=== PATIENT | male | born 1950 | race Caucasian/White ===

== ENCOUNTER 2021-03-18 00:09 | Emergency (ER) | payer MEDICARE ==
[2021-03-18 00:17] VITALS: BP 186/95; PULSE 62; RESP 20; TEMP 97.9
[2021-03-18] MEDS ORDERED: SODIUM CHLORIDE 0.9% 1,000 ML IV STA (00:19)
[2021-03-18] MEDS ORDERED: ONDANSETRON 4 MG/2 ML VIAL IVP STA (00:19)
[2021-03-18 01:12] LABS: Basophils % (A) 0 %; Eosinophils # (A) 0.3 k/uL (0-0.7); Eosinophils % (A) 3 %; HCT 47.5 % (39.0-53.0); HGB 15.9 gm/dL (13.0-17.5); Lymphocytes # (A) 1.9 k/uL (1.0-4.8); Lymphocytes % (A) 19 %; MCHC 33.5 g/dL (31.0-37.0); MCV 92.3 fL (80.0-100.0); Mean Platelet Volume 7.4; Monocytes # (A) 0.5 k/uL (0-1.0); Monocytes % (A) 5 %; Neutrophils # (A) 7.2 k/uL (1.3-7.7); Neutrophils % (A) 72 %; Platelet Count 184 k/uL (150-450); RBC 5.14 m/uL (4.30-5.90); RDW 13.9 % (11.5-15.5); WBC 10.1 k/uL (3.8-10.6)
--- NOTE | 2021-03-18 01:37 | ED ---
Abdominal Pain HPI - General Chief Complaint: Abdominal Pain Stated Complaint: Abd Pain Time Seen by Provider: 03/18/21 00:19 Source: patient, RN notes reviewed Mode of arrival: ambulatory Limitations: no limitations - History of Present Illness Initial Comments: Patient is a 71-year-old male that presents to the emergency department complaining of right upper quadrant and upper abdominal pain after eating increase each cheeseburger and chilly. He notes that shortly after eating this food he started having abdominal cramps and upper abdominal pain. He notes that he went to the bathroom several times. He notes that he did feel nauseous but never vomited. Patient notes that since then the pain has subsided moderately. He still notes that he is having cramping and nausea. She notes he still has his gallbladder. He denied any chest pain shortness of breath headache constipation fever fatigue chills. - Related Data Allergies Allergy/AdvReac Type Severity Reaction Status Date / Time No Known Allergies Allergy Verified 03/18/21 00:11 Review of Systems ROS Statement: Those systems with pertinent positive or pertinent negative responses have been documented in the HPI. ROS Other: All systems not noted in ROS Statement are negative. Past Medical History Past Medical History: Hyperlipidemia, Hypertension History of Any Multi-Drug Resistant Organisms: None Reported Past Surgical History: No Surgical Hx Reported Additional Past Surgical History / Comment(s): carpel tunnel Past Psychological History: Anxiety Smoking Status: Never smoker Past Alcohol Use History: Rare Past Drug Use History: None Reported General Exam Limitations: no limitations General appearance: alert, in no apparent distress, obese (Morbidly) Head exam: Present: atraumatic, normocephalic, normal inspection Eye exam: Present: normal appearance, PERRL, EOMI. Absent: scleral icterus, conjunctival injection, periorbital swelling ENT exam: Present: normal exam, mucous membranes moist Neck exam: Present: normal inspection Respiratory exam: Present: normal lung sounds bilaterally. Absent: respiratory distress, wheezes, rales, rhonchi, stridor Cardiovascular Exam: Present: regular rate, normal rhythm, normal heart sounds. Absent: systolic murmur, diastolic murmur, rubs, gallop, clicks GI/Abdominal exam: Present: soft, tenderness (Her upper quadrant and epigastric region), normal bowel sounds. Absent: distended, guarding, rebound, rigid Extremities exam: Present: normal inspection, full ROM, normal capillary refill. Absent: tenderness, pedal edema, joint swelling, calf tenderness Neurological exam: Present: alert, oriented X3 Psychiatric exam: Present: normal affect, normal mood Skin exam: Present: warm, dry, intact, normal color. Absent: rash Course Vital Signs 03/18/21 00:11 Temperature 97.9 F Pulse Rate 62 Respiratory 20 Rate Blood Pressure 186/95 O2 Sat by Pulse 96 Oximetry Medical Decision Making - Medical Decision Making 71-year-old male complaining of right upper quadrant and epigastric abdominal pain after eating a greasy cheeseburger and chilly. Labs, 4 mg of Zofran, ultrasound of the gallbladder ordered. Labs CBC unremarkable, CMP shows an elevated amylase of 250 an elevated lipase of 2997. Patient was informed that we CT acute problems patient rated discharge home. Patient adamantly states that he wants to go home. He was informed to have bowel rest tomorrow by not eating any food and just drinking water. He will be sent with a, 3 starter pack and a Zofran starter pack. Ultrasound shows several gallstones but no obstruction. Case discussed with Dr. Delacruz, patient can discharge home. - Lab Data Result diagrams: 03/18/21 01:01 03/18/21 01:25 Lab Results 03/18/21 03/18/21 Range/Units 01:01 01:25 WBC 10.1 (3.8-10.6) k/uL RBC 5.14 (4.30-5.90) m/uL Hgb 15.9 (13.0-17.5) gm/dL Hct 47.5 (39.0-53.0) % MCV 92.3 (80.0-100.0) fL MCH 31.0 (25.0-35.0) pg MCHC 33.5 (31.0-37.0) g/dL RDW 13.9 (11.5-15.5) % Plt Count 184 (150-450) k/uL MPV 7.4 Neutrophils % 72 % Lymphocytes % 19 % Monocytes % 5 % Eosinophils % 3 % Basophils % 0 % Neutrophils # 7.2 (1.3-7.7) k/uL Lymphocytes # 1.9 (1.0-4.8) k/uL Monocytes # 0.5 (0-1.0) k/uL Eosinophils # 0.3 (0-0.7) k/uL Basophils # 0.0 (0-0.2) k/uL Sodium 138 (137-145) mmol/L Potassium 3.9 (3.5-5.1) mmol/L Chloride 104 (98-107) mmol/L Carbon Dioxide 24 (22-30) mmol/L Anion Gap 10 mmol/L BUN 24 H (9-20) mg/dL Creatinine 0.78 (0.66-1.25) mg/dL Est GFR (CKD-EPI)AfAm >90 (>60 ml/min/1.73 sqM) Est GFR (CKD-EPI)NonAf 90 (>60 ml/min/1.73 sqM) Glucose 131 H (74-99) mg/dL Calcium 9.6 (8.4-10.2) mg/dL Total Bilirubin 0.4 (0.2-1.3) mg/dL AST 35 (17-59) U/L ALT 35 (4-49) U/L Alkaline Phosphatase 76 (38-126) U/L Total Protein 7.0 (6.3-8.2) g/dL Albumin 4.0 (3.5-5.0) g/dL Amylase 250 H (30-110) U/L Lipase 2997 H (23-300) U/L - Radiology Data Radiology results: report reviewed, image reviewed Ultrasound of the gallbladder: There is gallstones or gallbladder polyp at the gallbladder fundus. No dilated ducts. No discrete liver mass. There is pro bably fatty infiltration of the liver. Disposition Clinical Impression: Pancreatitis Disposition: HOME SELF-CARE Condition: Stable Instructions (If sedation given, give patient instructions): Pancreatitis (ED) Additional Instructions: Please return to the Emergency Department if symptoms worsen or any other concerns. Follow-up with primary care 1-2 days. Bowel rest for the next 24-48 hours, only drink water no coffee Tea Pop or alcohol. Try to avoid any food for at least 24 hours. Take Tylenol and Zofran as prescribed. Is patient prescribed a controlled substance at d/c from ED?: No Referrals: Mallika Brunner [Primary Care Provider] - 1-2 days Time of Disposition: 02:04
--- NOTE | 2021-03-18 01:40 | US ---
EXAMINATION TYPE: US gallbladder DATE OF EXAM: 03/18/2021 COMPARISON: NONE CLINICAL HISTORY: RUQ pain. Abdominal cramping after eating per patient. EXAM MEASUREMENTS: Liver Length: 18.2 cm Gallbladder Wall: 0.2 cm CBD: 0.4 cm Right Kidney: 11.6 x 5.8 x 7.0 cm Limited due to patient body habitus Pancreas: Obscured by bowel gas Liver: Increased attenuation, decreased visualization of vessels suggestive of fatty infiltrate. En larged in size. Coarse. Gallbladder: possible echogenic lesion adjacent to fundal wall - 0.3 x 0.4 cm, only seen LLD Evidence for sonographic Bowie's sign: neg CBD: wnl Right Kidney: No hydronephrosis or masses seen IMPRESSION: There is gallstone or gallbladder polyp at the gallbladder fundus. No dilated ducts. No discrete live r mass. There is probably fatty infiltration of the liver.
[2021-03-18 01:47] LABS: ALT 35 U/L (4-49); AST 35 U/L (17-59); African American GFR (CKD) >90 (>60 ml/min/1.73 sqM); Alkaline Phosphatase 76 U/L (38-126); Amylase 250 U/L (30-110); Anion Gap 10 mmol/L; Blood Urea Nitrogen 24 mg/dL (9-20); Calcium 9.6 mg/dL (8.4-10.2); Carbon Dioxide 24 mmol/L (22-30); Chloride 104 mmol/L (98-107); Glucose 131 mg/dL (74-99); Non-African American GFR(CKD) 90 (>60 ml/min/1.73 sqM); Potassium 3.9 mmol/L (3.5-5.1); Sodium 138 mmol/L (137-145); Total Bilirubin 0.4 mg/dL (0.2-1.3)
[2021-03-18 01:56] LABS: Lipase 2997 U/L (23-300)
[2021-03-18] MEDS ORDERED: ACET/COD 300 MG/30 MG STARTER PACK 6 TAB BTL PO STA (02:03)
[2021-03-18] MEDS ORDERED: ONDANSETRON 4 MG ODT STARTER PACK 2 TAB BTL PO STA (02:03)
== END 2021-03-18 03:07 | disposition home or self-care (01) ==
LOC: EC 00:09
DX: K85.90 Acute pancreatitis without necrosis or infection, unspecified (principal); I10 Essential (primary) hypertension; E78.5 Hyperlipidemia, unspecified; F41.9 Anxiety disorder, unspecified
CPT/HCPCS: 99284; 96374; 36415; 80053; 82150; 83690; 85025; 76705; J2405; S0119

== ENCOUNTER 2023-01-11 12:02 | Observation (INO) | payer MEDICARE ==
--- NOTE | 2023-01-11 12:30 | ED ---
General Adult HPI - General Chief complaint: Shortness of Breath Stated complaint: Cellulitis in both legs Time Seen by Provider: 01/11/23 12:12 Source: patient Mode of arrival: wheelchair Limitations: no limitations - History of Present Illness Initial comments: Dictation was produced using [employer] dictation software. please excuse any grammatical, word or spelling errors. Chief Complaint: 72-year-old male presents emergency Department with acute on chronic lower extremity pain bilaterally History of Present Illness:. 72-year-old male who has past medical history dyslipidemia hypertension and osteoarthritis. Presents emergency department with worsening lower extremity pain. He's been expressing this pain for years. He has been seen by his primary care doctor for this and was instructed to go and see a technical documentation specialist. He did in fact see the technical documentation specialist months ago and symptoms improved however he has not followed up. Patient states over the last several weeks his symptoms have been getting worse. Denies any constitutional symptoms. States that the pain is so bad that he is unable to care for himself at home. He lives at home by himself with his dog. He has no one to help care for him. He denies any shortness of breath. Denies any constitutional symptoms. He has not been taking any analgesic medications for symptoms. The ROS documented in this emergency department record has been reviewed and confirmed by me. Those systems with pertinent positive or negative responses have been documented in the HPI. All other systems are other negative and/or noncontributory. - Related Data Allergies Allergy/AdvReac Type Severity Reaction Status Date / Time No Known Allergies Allergy Verified 03/18/21 00:11 Review of Systems ROS Statement: Those systems with pertinent positive or pertinent negative responses have been documented in the HPI. ROS Other: All systems not noted in ROS Statement are negative. Past Medical History Past Medical History: Hyperlipidemia, Hypertension, Osteoarthritis (OA) History of Any Multi-Drug Resistant Organisms: None Reported Past Surgical History: No Surgical Hx Reported Additional Past Surgical History / Comment(s): carpel tunnel Past Psychological History: Anxiety Smoking Status: Never smoker Past Alcohol Use History: Rare Past Drug Use History: None Reported General Exam - General Exam Comments Initial Comments: PHYSICAL EXAM: General Impression: Alert and oriented x3, not in acute distress HEENT: Normocephalic atraumatic, extra-ocular movements intact, pupils equal and reactive to light bilaterally, mucous membranes moist. Cardiovascular: Heart regular rate and rhythm Chest: Able to complete full sentences, no retractions, no tachypnea, lungs clear to auscultation bilaterally Abdomen: abdomen soft, non-tender, non-distended, no organomegaly Musculoskeletal: Pulses present and equal in all extremities, no peripheral ed gavin Motor: no focal deficits noted Neurological: CN II-XII grossly intact, no focal motor or sensory deficits noted Skin: Intact with no visualized rashes Lower extremity bilaterally: There is nonpitting edema to the bilateral lower extremities, affected skin is circumferential. It is tender to palpation. It is erythematous however not warm to the touch. Erythematous nonblanching Psych: Normal affect and mood Limitations: no limitations Course Vital Signs 01/11/23 12:08 Temperature 98 F Pulse Rate 99 Respiratory 16 Rate Blood Pressure 196/87 O2 Sat by Pulse 93 L Oximetry EKG Findings - EKG Comments: EKG Findings:: My EKG interpretation: Ventricular rate 96, sinus rhythm,. Interval 186, QRS 110, QTc 419. No WI prolongation, no QTC prolongation, no ST or T-wave changes noted. Overall, this EKG is unremarkable Medical Decision Making - Medical Decision Making Was pt. sent in by a medical professional or institution (, PA, DIE CUTTING MACHINE OPERATOR, urgent care, hospital, or alf...) When possible be specific @ -No Did you speak to anyone other than the patient for history (EMS, parent, family, police, friend...)? What history was obtained from this source @ -No Did you review nursing and triage notes (agree or disagree)? Why? @ -I reviewed and agree with nursing and triage notes Were old charts reviewed (outside hosp., previous admission, EMS record, old EKG, old radiological studies, urgent care reports/EKG's, alf records)? Report findings @ -No old charts were reviewed Differential Diagnosis (chest pain, altered mental status, abdominal pain women, abdominal pain men, vaginal bleeding, musculoskeletal, weakness, fever, dyspnea, syncope, headache, dizziness, GI bleed, back pain, seizure, CVA, palpatations, mental health)? @ -Cellulitis, lymphedema, heart failure EKG interpreted by me (3pts min.). @ -None done X-rays interpreted by me (1pt min.). @ -2 view chest x-ray shows pulmonary vascular congestion and mild cardiomegaly CT interpreted by me (1pt min.). @ -None done U/S interpreted by me (1pt. min.). @ -None done What testing was considered but not performed or refused? (CT, X-rays, U/S, labs)? Why? @ -None What meds were considered but not given or refused? Why? @ -None Did you discuss the management of the patient with other professionals (professionals i.e. DrKassidy, PA, DIE CUTTING MACHINE OPERATOR, lab, RT, psych nurse, social worker health services, patient care specialist, teacher, airplane first officer, outsole caser)? Give summary @ -Case discussed with Dr. Clayton for admission Was smoking cessation discussed for >3mins.? @ -No Was critical care preformed (if so, how long)? @ -No Were there social determinants of health that impacted care today? How? (Homelessness, low income, unemployed, alcoholism, drug addiction, transportation, low edu. Level, literacy, decrease access to med. care, [place] [facility], rehab)? @ -No Was there de-escalation of care discussed even if they declined (Discuss DNR or withdrawal of care, Hospice)? DNR status @ -No What co-morbidities impacted this encounter? (DM, HTN, Smoking, COPD, CAD, Cancer, CVA, ARF, Chemo, Hep., AIDS, mental health diagnosis, sleep apnea, morbid obesity)? @ -None Was patient admitted / discharged? Hospital course, mention meds given and route, prescriptions, significant lab abnormalities, going to OR and other pertinent info. @ -72 Year-old male be admitted for observation admission for worsening leg pain. He has a pulse social situation. Patient lives at home by himself without any homecare assistance. States that he does not feel safe going home. Laboratory evaluation obtained. No leukocytosis. CBC and metabolic panel within acceptable limits. Very slight elevation in CRP. Patient's pain likely secondary to lymphedema. Patient requesting admission. Patient be admitted. This point no compelling objective findings to suggest cellulitis. Antibiotics withheld at this time. Undiagnosed new problem with uncertain prognosis? @ -No Drug Therapy requiring intensive monitoring for toxicity (Heparin, Nitro, Insulin, Cardizem)? @ -No Were any procedures done? @ -No Diagnosis/symptom? Acute, or Chronic, or Acute on Chronic? Uncomplicated (without systemic symptoms) or Complicated (systemic symptoms)? @ -Lower extremity pain, gravely disabled Side effects of treatment? @ -No Exacerbation, Progression, or Severe Exacerbation? @ -No Poses a threat to life or bodily function? How? (Chest pain, [place], [place], pneumonia, PE, COPD, DKA, ARF, appy, cholecystitis, CVA, Diverticulitis, Homicidal, [place] cidal, threat to staff... and all critical care pts) @ -yes - Lab Data Result diagrams: 01/11/23 12:42 01/11/23 12:42 Lab Results 01/11/23 01/11/23 01/11/23 Range/Units 12:42 12:42 12:42 WBC 7.7 (3.8-10.6) k/uL RBC 5.04 (4.30-5.90) m/uL Hgb 14.9 (13.0-17.5) gm/dL Hct 44.6 (39.0-53.0) % MCV 88.5 (80.0-100.0) fL MCH 29.6 (25.0-35.0) pg MCHC 33.4 (31.0-37.0) g/dL RDW 13.5 (11.5-15.5) % Plt Count 226 (150-450) k/uL MPV 6.7 Neutrophils % 68 % Lymphocytes % 20 % Monocytes % 7 % Eosinophils % 3 % Basophils % 0 % Neutrophils # 5.2 (1.3-7.7) k/uL Lymphocytes # 1.5 (1.0-4.8) k/uL Monocytes # 0.5 (0-1.0) k/uL Eosinophils # 0.2 (0-0.7) k/uL Basophils # 0.0 (0-0.2) k/uL Sodium 139 (137-145) mmol/L Potassium 4.1 (3.5-5.1) mmol/L Chloride 104 (98-107) mmol/L Carbon Dioxide 25 (22-30) mmol/L Anion Gap 10 mmol/L BUN 17 (9-20) mg/dL Creatinine 0.78 (0.66-1.25) mg/dL Est GFR (CKD-EPI)AfAm >90 (>60 ml/min/1.73 sqM) Est GFR (CKD-EPI)NonAf 89 (>60 ml/min/1.73 sqM) Glucose 96 (74-99) mg/dL Plasma Lactic Acid Hollis 1.2 (0.7-2.0) mmol/L Calcium 9.3 (8.4-10.2) mg/dL Total Bilirubin 0.7 (0.2-1.3) mg/dL AST 34 (17-59) U/L ALT 22 (4-49) U/L Alkaline Phosphatase 84 (38-126) U/L C-Reactive Protein 4.9 H (<1.0) mg/dL NT-Pro-B Natriuret Pep 438 pg/mL Total Protein 7.7 (6.3-8.2) g/dL Albumin 3.7 (3.5-5.0) g/dL Disposition Clinical Impression: Leg pain Disposition: ADMITTED IP TO THIS [facility] Condition: Fair Referrals: None,Stated [Primary Care Provider] - 1-2 days Decision Time: 15:23
[2023-01-11 12:54] LABS: Basophils % (A) 0 %; Eosinophils # (A) 0.2 k/uL (0-0.7); Eosinophils % (A) 3 %; HCT 44.6 % (39.0-53.0); HGB 14.9 gm/dL (13.0-17.5); Lymphocytes # (A) 1.5 k/uL (1.0-4.8); Lymphocytes % (A) 20 %; MCH 29.6 pg (25.0-35.0); MCHC 33.4 g/dL (31.0-37.0); MCV 88.5 fL (80.0-100.0); Mean Platelet Volume 6.7; Monocytes # (A) 0.5 k/uL (0-1.0); Monocytes % (A) 7 %; Neutrophils # (A) 5.2 k/uL (1.3-7.7); Neutrophils % (A) 68 %; Platelet Count 226 k/uL (150-450); RBC 5.04 m/uL (4.30-5.90); RDW 13.5 % (11.5-15.5); WBC 7.7 k/uL (3.8-10.6)
[2023-01-11 13:12] LABS: ALT 22 U/L (4-49); AST 34 U/L (17-59); African American GFR (CKD) >90 (>60 ml/min/1.73 sqM); Albumin 3.7 g/dL (3.5-5.0); Alkaline Phosphatase 84 U/L (38-126); Anion Gap 10 mmol/L; Blood Urea Nitrogen 17 mg/dL (9-20); Calcium 9.3 mg/dL (8.4-10.2); Carbon Dioxide 25 mmol/L (22-30); Chloride 104 mmol/L (98-107); Glucose 96 mg/dL (74-99); Non-African American GFR(CKD) 89 (>60 ml/min/1.73 sqM); Potassium 4.1 mmol/L (3.5-5.1); Sodium 139 mmol/L (137-145); Total Bilirubin 0.7 mg/dL (0.2-1.3); Total Protein 7.7 g/dL (6.3-8.2)
[2023-01-11 13:21] LABS: NT-Pro-B-Type Natriuretic Pept 438 pg/mL
[2023-01-11 13:42] LABS: C Reactive Protein 4.9 mg/dL (<1.0)
--- NOTE | 2023-01-11 14:21 | XR ---
EXAMINATION TYPE: XR chest 2V DATE OF EXAM: 01/11/2023 COMPARISON: NONE HISTORY: Dyspnea TECHNIQUE: Frontal and lateral views of the chest are obtained. FINDINGS: There is mild pulmonary vascular congestion but no interstitial airspace edema. The heart is moderate ly enlarged. There is no pleural effusion or pneumothorax. The osseous structures are intact. IMPRESSION: Findings most consistent with mild CHF. Clinical correlation recommended.
[2023-01-11] MEDS ORDERED: ONDANSETRON 4 MG/2 ML VIAL IVP PRN (15:17)
[2023-01-11] MEDS ORDERED: NALOXONE 0.4 MG/ML 1 ML VIAL IV PRN (15:17)
[2023-01-11] MEDS ORDERED: MORPHINE SULFATE 4 MG/ML SYRINGE IV PRN (15:17)
[2023-01-11] MEDS ORDERED: HYDROcodone/APAP 5-325MG 1 EACH TAB PO PRN (15:17)
[2023-01-11] MEDS ORDERED: ACETAMINOPHEN TAB 325 MG TAB PO PRN (18:16)
[2023-01-11] MEDS ORDERED: IBUPROFEN 400 MG TAB PO PRN (18:16)
--- NOTE | 2023-01-11 18:18 | P.HPIM ---
History of Present Illness H&P Date: 01/11/23 Chief Complaint: LE pain 72 year old man who does not follow with a physician in the last year since losing insurance, HTN, HLD, Lymphedema presented for evaluation of LE pain. Pt says that pain has been chronic over the last year, but has been very bad in the last few days. He has only tried over the counter medication for this including tylenol/motrin, gauze wrap etc. However, he has not found significant relief. He has not taken any prescription meds in the last year. He used to be on medications for BP, cholesterol. He denies fevers. Reports chills. Denies n/v/c/d, abd pain, cough, dyspnea, dysuria, dyschezia, numbness/weakness of extremities. In the ER, patient was afebrile, 196/87, HR 99, 97% on RA. CBC, BMP, LFTs unremarkable. CRP 4.9. BNP 438. EKG shows NSR wth normal axis, no evidence of ischemia. CXR shows cardiomegaly, mild vascular congestion. Case discussed with ER provider and patient admitted to observation for LE pain. All Systems reviewed and pertinent positives and negatives noted in HPI, all other symptoms are negative Gen: in no apparent distress, resting comfortably in bed Eyes: PERRL, no scleral injection or icterus HENT: normocephalic, atraumatic, good hearing acuity, moist mucous membranes Neck: no tracheal deviation, full range of motion Resp: good air exchange, breathing comfortably with no accessory muscle use, no tactile fremitus, clear to auscultation bilaterally CVS: good distal perfusion x 4, bilateral pitting edema superimposed on lymphedema with chronic venous stasis changes, regular rate and rhythm GI: soft, NTTP, ND, no hepatosplenomegaly : no suprapubic tenderness, no CVAT, platt catheter not present MSK: no clubbing, no cyanosis, no noted contractures of extremities Skin: no noted rashes, petechiae; temperature of skin is appropriate Neuro: moving all extremities without signs of weakness, CN II-XII intact Psych: cooperative, euthymic mood, insight and judgment intact Labs and images as above Assessment: Bilateral lower extremity pain Lymphedema - wound care consult - outpatient wound care referral - tylenol PRN - gabapentin 100mg TID - motrin PRN Hypertensive urgency - amlodipine, lisinopril initiated today - hydralazine PRN for SBP > 180 Hyperlipidemia - start atorvastatin - lipid panel Obesity, class III - A1c - weight loss referral, diet and exercise lifestyle modification education on discharge Patient is full code Past Medical History Past Medical History: Hyperlipidemia, Hypertension, Osteoarthritis (OA) History of Any Multi-Drug Resistant Organisms: None Reported Past Surgical History: No Surgical Hx Reported Additional Past Surgical History / Comment(s): carpel tunnel Past Psychological History: Anxiety Smoking Status: Never smoker Past Alcohol Use History: Rare Past Drug Use History: None Reported Medications and Allergies Home Medications Medication Instructions Recorded Confirmed Type diphenhydrAMINE [Benadryl] 50 mg PO BID 01/11/23 01/11/23 History Allergies Allergy/AdvReac Type Severity Reaction Status Date / Time No Known Allergies Allergy Verified 01/11/23 15:57 Physical Exam Osteopathic Statement: *. No significant issues noted on an osteopathic structural exam other than those noted in the History and Physical/Consult. Vitals: Vital Signs Temp Pulse Pulse Resp BP BP BP 01/11/23 18:02 98.0 F 97 20 184/104 185/108 01/11/23 16:56 98.7 F 79 20 180/76 01/11/23 12:08 98 F 99 16 196/87 Pulse Ox 01/11/23 18:02 95 01/11/23 16:56 97 01/11/23 12:08 93 L Intake and Output 01/11/23 01/11/23 01/11/23 06:59 14:59 22:59 Other: Weight 158.757 kg Results CBC & Chem 7: 01/11/23 12:42 01/11/23 12:42 Labs: Abnormal Lab Results - Last 24 Hours (Table) 01/11/23 Range/Units 12:42 C-Reactive Protein 4.9 H (<1.0) mg/dL
[2023-01-11] MEDS: GABAPENTIN 100 MG CAP PO SCH ×2 (18:41→20:53)
[2023-01-11] MEDS: HEPARIN SODIUM,PORCINE 5,000 UNIT/ML 1 ML VIAL SQ SCH ×2 (18:42→23:51)
[2023-01-11] MEDS: lisinopriL 10 MG TAB PO SCH (18:43)
[2023-01-11] MEDS: amLODIPine 10 MG TAB PO SCH (18:43)
[2023-01-11] MEDS: SODIUM CHLORIDE 0.9% 1,000 ML IV SCH (20:53)
[2023-01-11] MEDS: ATORVASTATIN 40 MG TAB PO SCH (20:53)
[2023-01-11 23:35] LABS: Erythrocyte Sedimentation Rate 96 mm/Hr (0-20)
[2023-01-12 02:39] VITALS: RESP 18
[2023-01-12] MEDS: HEPARIN SODIUM,PORCINE 5,000 UNIT/ML 1 ML VIAL SQ SCH ×3 (08:11→23:46)
[2023-01-12] MEDS: GABAPENTIN 100 MG CAP PO SCH ×3 (08:11→20:00)
[2023-01-12] MEDS: amLODIPine 10 MG TAB PO SCH (08:11)
[2023-01-12] MEDS: lisinopriL 10 MG TAB PO SCH (08:11)
[2023-01-12 11:09] LABS: Blood Urea Nitrogen 14.6 mg/dL (9.0-27.0); Carbon Dioxide 28.2 mmol/L (21.6-31.8); Chloride 102 mmol/L (96-109); Chol/HDL Ratio 2.56 Ratio; Glucose 129 mg/dL (70-110); LDL Cholesterol,Calculated 75.8 mg/dL (0.0-131.0); Potassium 4.5 mmol/L (3.5-5.5); Sodium 140 mmol/L (135-145); VLDL Calculation 19.28 mg/dL (5.00-40.00)
[2023-01-12 11:19] LABS: Basophils # (A) 0.02 X 10*3/uL (0.00-0.10); Basophils % (A) 0.3 %; Eosinophils # (A) 0.11 X 10*3/uL (0.04-0.35); Eosinophils % (A) 1.5 %; HCT 44.7 % (39.6-50.0); HGB 14.2 d/dL (13.0-17.0); Lymphocytes # (A) 1.41 X 10*3/uL (0.90-5.00); Lymphocytes % (A) 19.6 %; MCH 29.2 pg (27.0-32.0); MCHC 31.8 d/dL (32.0-37.0); MCV 91.8 FL (80.0-97.0); Mean Platelet Volume 9.6 FL (9.5-12.2); Monocytes # (A) 0.61 X 10*3/uL (0.20-1.00); Monocytes % (A) 8.5 %; NRBC Per 100 WBC 0 X 10*3/uL (0.00-0.01); Neutrophils # (A) 5.03 X 10*3/uL (1.80-7.70); Neutrophils % (A) 69.7 %; Platelet Count 224 X 10*3/uL (140-440); RBC 4.87 X 10*6/uL (4.40-5.60); WBC 7.21 X 10*3/uL (4.50-10.00)
--- NOTE | 2023-01-12 11:37 | P.PN ---
Subjective Progress Note Date: 01/12/23 Hospital course: Patient is a Physical exam: Vital signs reviewed and stable. General: Nontoxic, no distress and appears stated age. Derm: Skin warm and dry, normal coloration for ethnicity. Head: Atraumatic, normocephalic and symmetric. Eyes: EOMs intact, no lid lag, and anicteric sclera Mouth: no lip lesions, mucus membranes moist Cardiovascular: regular rate and rhythm with normal S1S2, no murmur, positive posterior tibial pulses bilaterally, and cap refill < 2 seconds. Lungs: Respirations even, regular, and unlabored on room air. Lungs CTA bilaterally, no rhonchi, no rales, no wheezing, and no accessory muscle usage. Abdominal: soft, nontender to palpation, no guarding, no appreciable organomegaly Ext: ROM intact. No gross muscle atrophy, no edema, no contractures Neuro: Speech clear, face symmetrical and CN II-XII grossly intact with no noted focal neuro deficits Psych: Alert and oriented to person, place, time, and situation. Appropriate and pleasant affect. Assessment and Plan of Care: CODE STATUS:[] DVT prophylaxis: [] Discussed with: [] Anticipated discharge date: [] Anticipated discharge place: [] Patient was seen independently by Nurse Pracitioner. This document was prepared using [employer] dictation software. Please allow for errors in supervisor phosphorus processing, while rare they do occur. Objective - Vital Signs Vital signs: Vital Signs Temp 98.1 F 01/12/23 07:25 Pulse 75 01/12/23 07:25 Resp 18 01/12/23 07:25 BP 117/73 01/12/23 07:25 Pulse Ox 94 L 01/12/23 07:25 FiO2 Intake & Output 01/11/23 01/12/23 01/12/23 18:59 06:59 18:59 Intake Total 240 Balance 240 Weight 158.757 kg 154.8 kg Intake: Oral 240 Other: Voiding Method Toilet # Voids 1 3 - Labs CBC & Chem 7: 01/12/23 06:46 01/12/23 06:46 Labs: Abnormal Lab Results - Last 24 Hours (Table) 01/11/23 01/11/23 Range/Units 12:42 12:42 ESR 96 H (0-20) mm/Hr C-Reactive Protein 4.9 H (<1.0) mg/dL
--- NOTE | 2023-01-12 13:22 | P.CONS ---
History of Present Illness - Reason for Consult Consult date: 01/12/23 wound care - History of Present Illness This is a 72-year-old patient with history of venous insufficiency, lymphedema, and chronic ulcerations to bilateral lower extremities. Patient was followed previously had a wound care center however he did not tolerate the dressings and was not compliant. Patient has multiple open weeping ulcerations Limited to skin breakdown to bilateral lower extremities 4+ pitting edema with erythema and irritation noted. Patient routinely sits with his legs dependent and does not feel comfortable elevating them. Patient sleeps in a chair at night. Patient's past medical history significant for chronic venous insufficiency, hyperlipidemia, hypertension, and obesity. he is a lifelong nonsmoker and denies diabetes. Review Of Systems: Constitutional: No fever, no chills, no night sweats. No weight change. No weakness, fatigue or lethargy. No daytime sleepiness. Integumentary:reports wounds, no lesions. No rash or pruritus. No unusual bruising. No change in hair or nails. Physical exam: General Appearance: Alert, cooperative, no distress, appears stated age. Skin: See HPI all other Skin color, texture, tugor normal, no rashes or lesions. Neurologic: Alert oriented x3 Assessment: 1. Nonhealing ulceration other part of left lower extremity Limited to skin breakdown 2. Nonhealing ulceration with other part of right lower extremity Limited to skin breakdown 3. Chronic venous hypertension with inflammation and ulceration bilateral lower extremities 4. Obesity Plan: 1.Apply absorptive silver to the open weeping areas, zinc barrier cream to the intact skin wrap with rolled gauze and Alphonse wrap for compression. Change Thursday. Discussed with patient the importance of elevation and not sleeping in a chair all night. Discussed with patient the importance of compression. Patient verbalized understanding Thank you for the consultation any questions please contact the wound care center DNP note has been reviewed and discussed with Dr. Malik and the impression and plan of care has been directed as dictated. Past Medical History Past Medical History: Hyperlipidemia, Hypertension, Osteoarthritis (OA) History of Any Multi-Drug Resistant Organisms: None Reported Past Surgical History: No Surgical Hx Reported Additional Past Surgical History / Comment(s): carpel tunnel Past Anesthesia/Blood Transfusion Reactions: No Reported Reaction Past Psychological History: Anxiety Smoking Status: Never smoker Past Alcohol Use History: Rare Past Drug Use History: None Reported - Past Family History Father Family Medical History: Congestive Heart Failure (CHF) Mother Family Medical History: Cancer Medications and Allergies Home Medications Medication Instructions Recorded Confirmed Type diphenhydrAMINE [Benadryl] 50 mg PO BID 01/11/23 01/11/23 History Allergies Allergy/AdvReac Type Severity Reaction Status Date / Time No Known Allergies Allergy Verified 01/11/23 15:57 Physical Exam Vitals: Vital Signs Temp Pulse Pulse Resp BP BP BP 01/12/23 12:12 97.7 F 74 18 134/76 01/12/23 07:25 98.1 F 75 18 117/73 01/12/23 02:00 98.4 F 79 18 141/75 01/11/23 20:51 98.0 F 91 20 178/98 01/11/23 18:02 98.0 F 97 20 184/104 185/108 01/11/23 16:56 98.7 F 79 20 180/76 Pulse Ox 01/12/23 12:12 95 01/12/23 07:25 94 L 01/12/23 02:00 93 L 01/11/23 20:51 95 01/11/23 18:02 95 01/11/23 16:56 97 Intake and Output 01/11/23 01/12/23 01/12/23 22:59 06:59 14:59 Intake Total 240 Balance 240 Intake: Oral 240 Other: Voiding Method Toilet # Voids 1 3 2 Weight 158.757 kg 154.8 kg Results CBC & Chem 7: 01/12/23 06:46 01/12/23 06:46 Labs: Abnormal Lab Results - Last 24 Hours (Table) 01/11/23 01/11/23 01/12/23 Range/Units 12:42 12:42 06:46 MCHC (32.0-37.0) d/dL ESR 96 H (0-20) mm/Hr Glucose (70-110) mg/dL Hemoglobin A1c 7.1 H (<=6.0) % C-Reactive Protein 4.9 H (<1.0) mg/dL HDL Cholesterol (40.00-60.00) mg/dL 01/12/23 01/12/23 Range/Units 06:46 06:46 MCHC 31.8 L (32.0-37.0) d/dL ESR (0-20) mm/Hr Glucose 129 H (70-110) mg/dL Hemoglobin A1c (<=6.0) % C-Reactive Protein (<1.0) mg/dL HDL Cholesterol 60.90 H (40.00-60.00) mg/dL Assessment and Plan (1) Non-pressure chronic ulcer of other part of right lower leg limited to breakdown of skin Current Visit: Yes Status: Acute Code(s): L97.811 - NON-PRS CHR ULCER OTH PRT R LOW LEG LIMITED TO BRKDWN SKIN SNOMED Code(s): 24167842740283636 (2) Chronic venous hypertension (idiopathic) with ulcer and inflammation of bilateral lower extremity Current Visit: Yes Status: Acute Code(s): I87.333 - CHRONIC VENOUS HTN W ULCER AND INFLAM OF BILATERAL LOW EXTRM SNOMED Code(s): 477382703367506 (3) Non-pressure chronic ulcer of other part of left lower leg limited to breakdown of skin Current Visit: Yes Status: Acute Code(s): L97.821 - NON-PRS CHR ULCER OTH PRT L LOW LEG LIMITED TO BRKDWN SKIN SNOMED Code(s): 00601709892857314 (4) Obesity Current Visit: Yes Status: Acute Code(s): E66.9 - OBESITY, UNSPECIFIED SNOMED Code(s): 273179194
[2023-01-12] MEDS: SODIUM CHLORIDE 0.9% 1,000 ML IV SCH (16:40)
--- NOTE | 2023-01-12 18:03 | P.DS ---
Providers Date of admission: 01/11/23 15:17 Expected date of discharge: 01/12/23 Attending physician: Iram Stein DO Primary care physician: Stated None Hospital Course: Discharge Diagnosis: Hypertensive urgency, resolved. Blood pressure is much better controlled as patient was started on amlodipine 10 mg daily and lisinopril 10 mg daily. Newly diagnosed type 2 diabetes mellitus with hemoglobin A1c of 7.1%. Patient discharged home on metformin 500 mg twice daily and instructed to monitor blood glucose levels daily and document these findings and a daily log to bring with him to his next doctor's appointment. Hyperlipidemia, patient with history of hyperlipidemia and was restarted on atorvastatin 40 mg daily. Lipid profile was unremarkable this hospitalization. Patient encouraged to continue atorvastatin 40 mg daily along with heart healthy and carb consistent diet. Bilateral lower extremity lymphedema with venous insufficiency an chronic ulcerations, patient was evaluated by wound care and wounds were covered/wrapped and wound care instructions were provided. Patient to follow-up outpatient with wound care center 3 times weekly for wrapping and continued wound care upon discharge. Hospital Course: Patient is a 72-year-old male with a past medical history of hypertension, hyperlipidemia, and lymphedema. He presented to the emergency department on 01/11/23 secondary to a chief complaint of bilateral lower extremity pain. Patient reports he has had this pain ongoing for the past year but over the previous 3 days pain significantly worsened. Patient reports he was not following with his PCP and has been off of all of his medications for a year secondary to inability to afford medical care due to personal finances. Upon arrival to the emergency department patient was found to be in hypertensive urgency with blood pressure of 196/87, heart rate 99, respiratory rate 16, temp 98.0F, and SpO2 of 93% on room air. EKG was completed showing normal sinus rhythm at 96 bpm with no significant T-wave or ST abnormalities showing no signs of acute ischemia. Chest x-ray was completed showing mild pulmonary vascular congestion. Labs were completed and reviewed. CBC and BMP were unremarkable. ESR was elevated at 96. Lactic acid normal findings at 1.2. CRP elevated at 4.9. BNP was only minimally elevated at 438. Pro-calcitonin was negative at 0.07. Patient was admitted under our services to observation unit for hypertensive urgency and need for pain control. Patient monitored overnight. He was evaluated by wound care and recommendations were provided. Patient to have lymphedema wraps to bilateral lower extremities 3 times weekly. Open wounds/ulcerations were covered BLE were wrapped. Lipid profile was unremarkable. Hemoglobin A1c was elevated at 7.1%. Medically, patient is stable at this time and has had much better control over blood pressure over the past 24 hours. Currently blood pressure 134/76, heart rate 74, respiratory rate 18, temp 97.7F, and SpO2 of 95% on room air. Patient is free from complaints or concerns at this time. Patient to be provided with glucometer and testing strips/supplies and is being started on metformin 500 mg twice daily. Patient to be educated on importance of monitoring blood glucose levels daily and documenting these findings in a daily log to bring with him to his next doctor's appointment. Patient also being discharged home on atorvastatin 40 mg nightly, amlodipine 10 mg daily, and lisinopril 10 mg daily. Patient will need to estab max care with a PCP as discussed, patient reports he is going back to his previous PCP Dr. Camara. Physical examination: Patient seen and examined at bedside. Vital signs reviewed and stable. General: Nontoxic, no distress and appears stated age. Morbidly obese. Derm: Skin warm and dry, normal coloration for ethnicity. Head: Atraumatic, normocephalic and symmetric. Eyes: EOMs intact, no lid lag, and anicteric sclera Mouth: no lip lesions, mucus membranes moist Cardiovascular: regular rate and rhythm with normal S1S2, no murmur, positive posterior tibial pulses bilaterally, and cap refill < 2 seconds. Lungs: Respirations even, regular, and unlabored on room air. Lungs CTA bilaterally, no rhonchi, no rales, no wheezing, and no accessory muscle usage. Abdominal: soft, nontender to palpation, no guarding, no appreciable organomegaly Ext: ROM intact. 2-3+ pitting bilateral lower extremity edema with open seeping areas and ulcerations of left lower extremity and right lower extremity with venous discoloration. Neuro: Speech clear, face symmetrical and CN II-XII grossly intact with no noted focal neuro deficits Psych: Alert and oriented to person, place, time, and situation. Appropriate and pleasant affect. A total of 35 minutes of time were spent preparing this complex discharge summary. Pt was discharged on 01/12/23 at 5:43 PM. Patient was seen independently by Nurse Practitioner. This document was prepared using [employer] dictation software. Please allow for errors in surfboard maker while rare they do occur. Colt Setele NP rendered care for this patient independently, reviewed the findings and plan as documented in the note above. I did not physically speak with or examine the patient on this date. Patient Condition at Discharge: Stable Plan - Discharge Summary New Discharge Prescriptions: New Atorvastatin [Lipitor] 40 mg PO HS 30 Days #30 tab metFORMIN HCL 500 mg PO BID 30 Days #60 tablet amLODIPine [Norvasc] 10 mg PO DAILY 30 Days #30 tab lisinopriL [Zestril] 10 mg PO DAILY 30 Days #30 tab HYDROcodone/APAP 5-325MG [[place] 5-325] 1 each PO Q4HR PRN #18 tab PRN Reason: Moderate Pain (Scale 4 To 6) Continue diphenhydrAMINE [Benadryl] 50 mg PO BID Discharge Medication List diphenhydrAMINE [Benadryl] 50 mg PO BID 01/11/23 [History] Atorvastatin [Lipitor] 40 mg PO HS 30 Days #30 tab 01/12/23 [Rx] HYDROcodone/APAP 5-325MG [[place] 5-325] 1 each PO Q4HR PRN #18 tab 01/12/23 [Rx] amLODIPine [Norvasc] 10 mg PO DAILY 30 Days #30 tab 01/12/23 [Rx] lisinopriL [Zestril] 10 mg PO DAILY 30 Days #30 tab 01/12/23 [Rx] metFORMIN HCL 500 mg PO BID 30 Days #60 tablet 01/12/23 [Rx] Follow up Appointment(s)/Referral(s): Génesis Haro PT [REFERRING] - As Needed ([facility] FOR LYMPHEDEMA WRAPPING - WILL NEED DR DEVLIN) [facility] [NON-STAFF] - 1 Week Mallika Brunner [REFERRING] - 01/21/23 10:30 am (Please arrive a half hour early to complete paperwork (arrival time 10:00 am). Please bring ID and Insurance card to appointment. ) Patient Instructions/Handouts: Type 2 Diabetes in Adults: New Diagnosis (DC), Hypertensive Crisis (DC), Lymphedema (DC) Activity/Diet/Wound Care/Special Instructions: Activity: As tolerated. Take breaks as needed. Diet: Heart healthy and carb consistent diet. Avoid salts, or foods with hidden salts such as canned or boxed foods and frozen dinners. Extra salt makes your heart work harder and traps the fluid in your body for longer. Special Instructions: Take all of your medications as directed and remember to keep all of your doctor's appointments and follow-up as needed. You will need to monitor your blood glucose levels daily and document these findings in a daily log to bring with you to your next doctor's appointment. Goal is to obtain a hemoglobin A1c less than 6% yours is currently 7.1%. In addition to monitoring your blood glucose levels daily he will also need to monitor your blood pressure levels daily and document these findings and a daily log to bring with you to your next doctor's appointment as additional adjustments/dose changes may be needed to your current medication regimen. Thank you for allowing us to participate in your care, it was truly a pleasure having you for our patient!!! Discharge/Stand Alone Forms: Who Do I Call?, Area PCPs Discharge Disposition: HOME SELF-CARE
[2023-01-12] MEDS: ATORVASTATIN 40 MG TAB PO SCH (20:00)
[2023-01-13 01:08] VITALS: TEMP 97.8
[2023-01-13 07:55] VITALS: BP 192/65; PULSE 82
[2023-01-13] MEDS: GABAPENTIN 100 MG CAP PO SCH (08:01)
[2023-01-13] MEDS: lisinopriL 10 MG TAB PO SCH (08:01)
[2023-01-13] MEDS: HEPARIN SODIUM,PORCINE 5,000 UNIT/ML 1 ML VIAL SQ SCH (08:01)
[2023-01-13] MEDS: amLODIPine 10 MG TAB PO SCH (08:01)
--- NOTE | 2023-01-13 11:05 | P.DS ---
Providers Date of admission: 01/11/23 15:17 Attending physician: Iram Stein DO Primary care physician: Stated None Hospital Course: Discharge Diagnosis: Hypertensive urgency, resolved. Blood pressure is much better controlled as patient was started on amlodipine 10 mg daily and lisinopril 10 mg daily. Newly diagnosed type 2 diabetes mellitus with hemoglobin A1c of 7.1%. Patient was provided with glucometer and testing strips/supplies and is being discharged home on metformin 500 mg twice daily. Patient was instructed to monitor blood glucose levels daily and document these findings and a daily log to bring with him to his next doctor's appointment. Patient was scheduled for follow-up with his outpatient PCP on 01/21/23 at 10:30 AM. Hyperlipidemia, patient with history of hyperlipidemia and was restarted on atorvastatin 40 mg daily. Lipid profile was unremarkable this hospitalization. Patient encouraged to continue atorvastatin 40 mg daily along with heart healthy and carb consistent diet. Bilateral lower extremity lymphedema with venous insufficiency an chronic ulcerations, patient was evaluated by wound care and wounds were covered/wrapped and wound care instructions were provided. Patient to follow-up outpatient with wound care center 3 times weekly for wrapping and continued wound care upon discharge. Morbid obesity with BMI of 50.8 kg/m. Recommend outpatient structured weight management program. Hospital Course: Patient is a 72-year-old male with a past medical history of hypertension, hyperlipidemia, and lymphedema. He presented to the emergency department on 01/11/23 secondary to a chief complaint of bilateral lower extremity pain. Patient reports he has had this pain ongoing for the past year but over the previous 3 days pain significantly worsened. Patient reports he was not following with his PCP and has been off of all of his medications for a year secondary to inability to afford medical care due to personal finances. Upon arrival to the emergency department patient was found to be in hypertensive urgency with blood pressure of 196/87, heart rate 99, respiratory rate 16, temp 98.0F, and SpO2 of 93% on room air. EKG was completed showing normal sinus rhythm at 96 bpm with no significant T-wave or ST abnormalities showing no signs of acute ischemia. Chest x-ray was completed showing mild pulmonary vascular congestion. Labs were completed and reviewed. CBC and BMP were unremarkable. ESR was elevated at 96. Lactic acid normal findings at 1.2. CRP elevated at 4.9. BNP was only minimally elevated at 438. Pro-calcitonin was negative at 0.07. Patient was admitted under our services to observation unit for hypertensive urgency and need for pain control. Patient monitored overnight. He was evaluated by wound care and recommendations were provided. Patient to have lymphedema wraps to bilateral lower extremities 3 times weekly. Open wounds/ulcerations were covered BLE were wrapped. Lipid profile was unremarkable. Hemoglobin A1c was elevated at 7.1%. Medically, patient is stable at this time and has had much better control over blood pressure over the past 24 hours. Currently blood pressure 134/76, heart rate 74, respiratory rate 18, temp 97.7F, and SpO2 of 95% on room air. Patient is free from complaints or concerns at this time. Patient to be provided with glucometer and testing strips/supplies and is being started on metformin 500 mg twice daily. Patient to be educated on importance of monitoring blood glucose levels daily and documenting these findings in a daily log to bring with him to his next doctor's appointment. Patient also being discharged home on atorvastatin 40 mg nightly, amlodipine 10 mg daily, and lisinopril 10 mg daily. Patient will need to e stablish care with a PCP as discussed, patient reports he is going back to his previous PCP Dr. Camara and office was consulted and successful arrangements were made for patient to follow-up in their office next week. Physical examination: Patient seen and examined at bedside. Patient currently free from any complaints or concerns at this time. Vital signs reviewed and stable. General: Nontoxic, no distress and appears stated age. Morbidly obese. Derm: Skin warm and dry, normal coloration for ethnicity. Head: Atraumatic, normocephalic and symmetric. Eyes: EOMs intact, no lid lag, and anicteric sclera Mouth: no lip lesions, mucus membranes moist Cardiovascular: regular rate and rhythm with normal S1S2, no murmur, positive posterior tibial pulses bilaterally, and cap refill < 2 seconds. Lungs: Respirations even, regular, and unlabored on room air. Lungs CTA bilaterally, no rhonchi, no rales, no wheezing, and no accessory muscle usage. Abdominal: soft, nontender to palpation, no guarding, no appreciable organomegaly Ext: ROM intact. 2-3+ pitting bilateral lower extremity edema with open seeping areas and ulcerations of left lower extremity and right lower extremity with venous discoloration. Neuro: Speech clear, face symmetrical and CN II-XII grossly intact with no noted focal neuro deficits Psych: Alert and oriented to person, place, time, and situation. Appropriate and pleasant affect. A total of 33 minutes of time were spent preparing this complex discharge summary. Pt was discharged on 01/13/23 at 9:52 AM Patient was seen independently by Nurse Practitioner. This document was prepared using [employer] dictation software. Please allow for errors in software test specialist while rare they do occur. Colt Steele NP rendered care for this patient independently, reviewed the findings and plan as documented in the note above. I did not physically speak with or examine the patient on this date. Patient Condition at Discharge: Stable Plan - Discharge Summary New Discharge Prescriptions: New Atorvastatin [Lipitor] 40 mg PO HS 30 Days #30 tab metFORMIN HCL 500 mg PO BID 30 Days #60 tablet amLODIPine [Norvasc] 10 mg PO DAILY 30 Days #30 tab lisinopriL [Zestril] 10 mg PO DAILY 30 Days #30 tab HYDROcodone/APAP 5-325MG [[place] 5-325] 1 each PO Q4HR PRN #18 tab PRN Reason: Moderate Pain (Scale 4 To 6) Continue diphenhydrAMINE [Benadryl] 50 mg PO BID Discharge Medication List diphenhydrAMINE [Benadryl] 50 mg PO BID 01/11/23 [History] Atorvastatin [Lipitor] 40 mg PO HS 30 Days #30 tab 01/12/23 [Rx] HYDROcodone/APAP 5-325MG [[place] 5-325] 1 each PO Q4HR PRN #18 tab 01/12/23 [Rx] amLODIPine [Norvasc] 10 mg PO DAILY 30 Days #30 tab 01/12/23 [Rx] lisinopriL [Zestril] 10 mg PO DAILY 30 Days #30 tab 01/12/23 [Rx] metFORMIN HCL 500 mg PO BID 30 Days #60 tablet 01/12/23 [Rx] Follow up Appointment(s)/Referral(s): Génesis Haro PT [REFERRING] - As Needed ([facility] FOR LYMPHEDEMA WRAPPING - WILL NEED DR DEVLIN) [facility] [NON-STAFF] - 1 Week Mallika Brunner [REFERRING] - 01/21/23 10:30 am (Please arrive a half hour early to complete paperwork (arrival time 10:00 am). Please bring ID and Insurance card to appointment. ) Patient Instructions/Handouts: Type 2 Diabetes in Adults: New Diagnosis (DC), Hypertensive Crisis (DC), Lymphedema (DC) Activity/Diet/Wound Care/Special Instructions: Activity: As tolerated. Take breaks as needed. Diet: Heart healthy and carb consistent diet. Avoid salts, or foods with hidden salts such as canned or boxed foods and frozen dinners. Extra salt makes your heart work harder and traps the fluid in your body for longer. Special Instructions: Take all of your medications as directed and remember to keep all of your doctor's appointments and follow-up as needed. You will need to monitor your blood glucose levels daily and document these findings in a daily log to bring with you to your next doctor's appointment. Goal is to obtain a hemoglobin A1c less than 6% yours is currently 7.1%. In addition to monitoring your blood glucose levels daily he will also need to monitor your blood pressure levels daily and document these findings and a daily log to bring with you to your next doctor's appointment as additional adjustments/dose changes may be needed to your current medication regimen. Thank you for allowing us to participate in your care, it was truly a pleasure having you for our patient!!! Discharge/Stand Alone Forms: Who Do I Call?, Area PCPs Discharge Disposition: HOME SELF-CARE
== END 2023-01-13 12:27 | disposition home or self-care (01) ==
LOC: EC 12:02 → 5NMEDONC 15:17
PROVIDERS: ADMIT Internal Medicine; ATTEND Internal Medicine
DX: I87.333 Chronic venous hypertension (idiopathic) with ulcer and inflammation of bilateral lower extremity (principal); E78.5 Hyperlipidemia, unspecified; I16.0 Hypertensive urgency; I10 Essential (primary) hypertension; E11.9 Type 2 diabetes mellitus without complications; F41.9 Anxiety disorder, unspecified; E66.01 Morbid (severe) obesity due to excess calories; Z68.43 Body mass index [BMI] 50.0-59.9, adult; Z79.899 Other long term (current) drug therapy
CPT/HCPCS: 96372 ×3; 96374; 99285; 36415; 93005; 83880; 80061; 80053; 80048; 85652; 83605; 83735; 85025 ×2; 86140; 83036; 84145; 71046; G0378 ×3; J2270; J1644 ×3

== ENCOUNTER 2024-07-26 18:15 | Emergency (ER) | payer MEDICARE ==
--- NOTE | 2024-07-26 18:39 | ED ---
Dizziness HPI - General Chief Complaint: Dizziness Stated Complaint: dizziness Time Seen by Provider: 07/26/24 18:22 Source: EMS, RN notes reviewed, old records reviewed Mode of arrival: EMS Limitations: no limitations - History of Present Illness Initial Comments: This is a 74-year-old male presenting with dizziness and near syncope dizziness near syncopal event occurred while in the kitchen today he was and did have difficulty getting back to his chair. Thought he was in a pass out that he was in a fall over very off balance. Patient had an episode about 2 weeks ago that did resolve on its own was seen by EMS at his house decided not to come to the hospital at that time. No headache chest pain shortness of breath or abdominal pain. No prior history of syncope no prior history of CVA MD Complaint: dizziness, lightheadedness, near syncope, difficulty walking -: hour(s) Timing: sudden onset Description: sense of movement, difficulty walking, near-syncope History of Same: Yes History of Trauma: No Severity: moderate Improves With: remaining still Worsens With: movement Associated Symptoms: denies other symptoms - Related Data Home Medications Medication Instructions Recorded Confirmed diphenhydrAMINE [Benadryl] 50 mg PO BID 01/11/23 01/11/23 Previous Rx's Medication Instructions Recorded Atorvastatin [Lipitor] 40 mg PO HS 30 Days #30 tab 01/12/23 HYDROcodone/APAP 5-325MG [Agra 1 each PO Q4HR PRN #18 tab 01/12/23 5-325] amLODIPine [Norvasc] 10 mg PO DAILY 30 Days #30 tab 01/12/23 lisinopriL [Zestril] 10 mg PO DAILY 30 Days #30 tab 01/12/23 metFORMIN HCL 500 mg PO BID 30 Days #60 tablet 01/12/23 Meclizine [Antivert] 25 mg PO TID #15 tab 07/26/24 Allergies Allergy/AdvReac Type Severity Reaction Status Date / Time codeine AdvReac Nausea Verified 07/26/24 18:21 Review of Systems ROS Statement: Those systems with pertinent positive or pertinent negative responses have been documented in the HPI. ROS Other: All systems not noted in ROS Statement are negative. Past Medical History Past Medical History: Hyperlipidemia, Hypertension, Osteoarthritis (OA) History of Any Multi-Drug Resistant Organisms: None Reported Past Surgical History: No Surgical Hx Reported Additional Past Surgical History / Comment(s): carpel tunnel Past Anesthesia/Blood Transfusion Reactions: No Reported Reaction Past Psychological History: Anxiety Smoking Status: Never smoker Past Alcohol Use History: Rare Past Drug Use History: None Reported - Past Family History Father Family Medical History: Congestive Heart Failure (CHF) Mother Family Medical History: Cancer General Exam Limitations: no limitations General appearance: alert, in no apparent distress Head exam: Present: atraumatic, normocephalic, normal inspection Eye exam: Present: normal appearance, PERRL, EOMI. Absent: scleral icterus, conjunctival injection, periorbital swelling ENT exam: Present: normal exam, mucous membranes moist Neck exam: Present: normal inspection. Absent: tenderness, meningismus, lymphadenopathy Respiratory exam: Present: normal lung sounds bilaterally. Absent: respiratory distress, wheezes, rales, rhonchi, stridor Cardiovascular Exam: Present: regular rate, normal rhythm, normal heart sounds. Absent: systolic murmur, diastolic murmur, rubs, gallop, clicks GI/Abdominal exam: Present: soft, normal bowel sounds. Absent: distended, tenderness, guarding, rebound, rigid Extremities exam: Present: normal inspection, full ROM, normal capillary refill. Absent: tenderness, pedal edema, joint swelling, calf tenderness Back exam: Present: normal inspection Neurological exam: Present: alert, oriented X3, CN II-XII intact Psychiatric exam: Present: normal affect, normal mood Skin exam: Present: warm, dry, intact, normal color. Absent: rash Course Vital Signs 07/26/24 18:17 Temperature 97.5 F L Pulse Rate 80 Respiratory 20 Rate Blood Pressure 156/78 O2 Sat by Pulse 96 Oximetry - Reevaluation(s) Reevaluation #1: 07/26/24 19:31 Medical records reviewed Reevaluation #4: Was pt. sent in by a medical professional or institution (, PA, GAME AGENT, urgent care, hospital, or half-way...) When possible be specific @ -no Did you speak to anyone other than the patient for history (EMS, parent, family, police, friend...)? What history was obtained from this source @ -no Did you review nursing and triage notes (agree or disagree)? Why? @ -agree Are old charts reviewed (outside hosp., previous admission, EMS record, old EKG, old radiological studies, urgent care reports/EKG's, half-way records)? Report findings @ -yes Differential Diagnosis (chest pain, altered mental status, abdominal pain women, abdominal pain men, vaginal bleeding, weakness, fever, dyspnea, syncope, headache, dizziness, GI bleed, back pain, seizure, CVA, palpatations, mental health, musculoskeletal)? @ -prior EKG interpreted by me (3pts min.). @ -yes X-rays interpreted by me (1pt min.). @ -yes negative for acute disease CT interpreted by me (1pt min.). @ -no U/S interpreted by me (1pt. min.). @ -no What testing was considered but not performed or refused? (CT, X-rays, U/S, labs)? Why? @ -none What meds were considered but not given or refused? Why? @ -none Did you discuss the management of the patient with other professionals (professionals i.e. , PA, GAME AGENT, lab, RT, psych nurse, social work administrator, instructional support technician, teacher, admissions officer, case worker)? Give summary @ -no Was smoking cessation discussed for >3mins.? @ -no Was critical care preformed (if so, how long)? @ -no Were there social determinants of health that impacted care today? How? (Homelessness, low income, unemployed, alcoholism, drug addiction, transportation, low edu. Level, literacy, decrease access to med. care, alf, rehab)? @ -none Was there de-escalation of care discussed even if they declined (Discuss DNR or withdrawal of care, Hospice)? DNR status @ -no What co-morbidities impacted this encounter? (DM, HTN, Smoking, COPD, CAD, Cancer, CVA, ARF, Chemo, Hep., AIDS, mental health diagnosis, sleep apnea, morbid obesity)? @ -none Was patient admitted / discharged? Hospital course, mention meds given and route, prescriptions, significant lab abnormalities, going to OR and other pertinent info. @ - Undiagnosed new problem with uncertain prognosis? @ -no Drug Therapy requiring intensive monitoring for toxicity (Heparin, Nitro, Insulin, Cardizem)? @ -no Were any procedures done? @ -no Diagnosis/symptom? @ - Acute, or Chronic, or Acute on Chronic? @ -Acute Uncomplicated (without systemic symptoms) or Complicated (systemic symptoms)? @ -Complicated Side effects of treatment? @ -no Exacerbation, Progression, or Severe Exacerbation? @ -exacerbation Poses a threat to life or bodily function? How? (Chest pain, USA, VA, pneumonia, PE, COPD, DKA, ARF, appy, cholecystitis, CVA, Diverticulitis, Homicidal, Suicidal, threat to staff... and all critical care pts) @ -yes Reevaluation #5: Differential Dizziness: Benign paroxysmal positional Vertigo, Meniere's disease, otitis media, acoustic neuroma, vertebrobasilar insufficiency, cerebellar stroke, encephalitis, hypovolemic, arrhythmia, coronary artery syndrome, anemia, this is not meant to be an all-inclusive list Differential Syncope: Valvular disease, hypertrophic cardiomyopathy, pulmonary embolism, tamponade, tachycardia, bradycardia, VA, hypovolemia, hemorrhage, dissection, anemia, intracranial hemorrhage, seizure, hypoglycemia, carbon monoxide poisoning, this is not meant to be an all-inclusive list. EKG Findings - EKG Comments: EKG Findings:: EKG sinus 80 GA 190 QRS 105 QTc 418 - EKG Results: EKG: interpreted by KRISTYN Medical Decision Making - Lab Data Result diagrams: 07/26/24 18:59 07/26/24 18:59 Lab Results 07/26/24 07/26/24 07/26/24 Range/Units 18:59 18:59 18:59 WBC 10.14 H (4.50-10.00) 10*3/uL RBC 4.61 (4.40-5.60) 10*6/uL Hgb 14.0 (13.0-17.0) g/dL Hct 41.1 (39.6-50.0) % MCV 89.2 (80.0-97.0) fL MCH 30.4 (27.0-32.0) pg MCHC 34.1 (32.0-37.0) g/dL Plt Count 200 (140-440) 10*3/uL MPV 8.9 L (9.5-12.2) fL Immature Gran % (Auto) 0.3 % Neutrophils % 74.5 % Lymphocytes % 17.4 % Monocytes % 5.5 % Eosinophils % 1.9 % Basophils % 0.4 % Immature Gran # 0.03 (0.00-0.04) 10*3/uL Neutrophils # 7.56 (1.80-7.70) 10*3/uL Lymphocytes # 1.76 (0.90-5.00) 10*3/uL Monocytes # 0.56 (0.20-1.00) 10*3/uL Eosinophils # 0.19 (0.04-0.35) 10*3/uL Basophils # 0.04 (0.00-0.10) 10*3/uL PT 10.9 (10.0-12.5) sec INR 1.0 (<1.2) APTT 22.7 (22.0-30.0) sec Sodium 140 (137-145) mmol/L Potassium 3.8 (3.5-5.1) mmol/L Chloride 103 (98-107) mmol/L Carbon Dioxide 28 (22-30) mmol/L Anion Gap 9 mmol/L BUN 27 H (9-20) mg/dL Creatinine 0.83 (0.66-1.25) mg/dL Est GFR (CKD-EPI)AfAm >90 (>60 ml/min/1.73 sqM) Est GFR (CKD-EPI)NonAf 86 (>60 ml/min/1.73 sqM) Glucose 148 H (74-99) mg/dL Plasma Lactic Acid Hollis (0.7-2.0) mmol/L Calcium 9.3 (8.4-10.2) mg/dL Phosphorus 3.9 (2.5-4.5) mg/dL Magnesium 1.7 (1.6-2.3) mg/dL Total Bilirubin 0.4 (0.2-1.3) mg/dL AST 48 (17-59) U/L ALT 50 H (4-49) U/L Alkaline Phosphatase 81 (38-126) U/L Troponin I (0.000-0.034) ng/mL NT-Pro-B Natriuret Pep 125 pg/mL Total Protein 7.6 (6.3-8.2) g/dL Albumin 4.0 (3.5-5.0) g/dL 07/26/24 07/26/24 Range/Units 18:59 18:59 WBC (4.50-10.00) 10*3/uL RBC (4.40-5.60) 10*6/uL Hgb (13.0-17.0) g/dL Hct (39.6-50.0) % MCV (80.0-97.0) fL MCH (27.0-32.0) pg MCHC (32.0-37.0) g/dL Plt Count (140-440) 10*3/uL MPV (9.5-12.2) fL Immature Gran % (Auto) % Neutrophils % % Lymphocytes % % Monocytes % % Eosinophils % % Basophils % % Immature Gran # (0.00-0.04) 10*3/uL Neutrophils # (1.80-7.70) 10*3/uL Lymphocytes # (0.90-5.00) 10*3/uL Monocytes # (0.20-1.00) 10*3/uL Eosinophils # (0.04-0.35) 10*3/uL Basophils # (0.00-0.10) 10*3/uL PT (10.0-12.5) sec INR (<1.2) APTT (22.0-30.0) sec Sodium (137-145) mmol/L Potassium (3.5-5.1) mmol/L Chloride (98-107) mmol/L Carbon Dioxide (22-30) mmol/L Anion Gap mmol/L BUN (9-20) mg/dL Creatinine (0.66-1.25) mg/dL Est GFR (CKD-EPI)AfAm (>60 ml/min/1.73 sqM) Est GFR (CKD-EPI)NonAf (>60 ml/min/1.73 sqM) Glucose (74-99) mg/dL Plasma Lactic Acid Hollis 2.1 H* (0.7-2.0) mmol/L Calcium (8.4-10.2) mg/dL Phosphorus (2.5-4.5) mg/dL Magnesium (1.6-2.3) mg/dL Total Bilirubin (0.2-1.3) mg/dL AST (17-59) U/L ALT (4-49) U/L Alkaline Phosphatase (38-126) U/L Troponin I <0.012 (0.000-0.034) ng/mL NT-Pro-B Natriuret Pep pg/mL Total Protein (6.3-8.2) g/dL Albumin (3.5-5.0) g/dL Disposition Clinical Impression: Benign paroxysmal positional vertigo, Vertigo, Dizziness Disposition: HOME SELF-CARE Condition: Fair Instructions (If sedation given, give patient instructions): Dizziness (ED) Prescriptions: Meclizine [Antivert] 25 mg PO TID #15 tab Is patient prescribed a controlled substance at d/c from ED?: No Referrals: Og Multani MD [Primary Care Provider] - 1-2 days Time of Disposition: 21:00
[2024-07-26] MEDS: SODIUM CHLORIDE 0.9% 1,000 ML IV ONE (18:59)
[2024-07-26] MEDS: diphenhydrAMINE 50 MG/ML 1 ML VIAL IVP STA (19:03)
[2024-07-26] MEDS: ONDANSETRON 4 MG/2 ML VIAL IVP STA (19:04)
[2024-07-26 19:08] LABS: Basophils # (A) 0.04 10*3/uL (0.00-0.10); Basophils % (A) 0.4 %; Eosinophils # (A) 0.19 10*3/uL (0.04-0.35); Eosinophils % (A) 1.9 %; HCT 41.1 % (39.6-50.0); Lymphocytes # (A) 1.76 10*3/uL (0.90-5.00); Lymphocytes % (A) 17.4 %; MCH 30.4 pg (27.0-32.0); MCHC 34.1 g/dL (32.0-37.0); MCV 89.2 fL (80.0-97.0); Mean Platelet Volume 8.9 fL (9.5-12.2); Monocytes # (A) 0.56 10*3/uL (0.20-1.00); Monocytes % (A) 5.5 %; Neutrophils # (A) 7.56 10*3/uL (1.80-7.70); Neutrophils % (A) 74.5 %; Platelet Count 200 10*3/uL (140-440); RBC 4.61 10*6/uL (4.40-5.60); RDW 12.6 % (11.5-14.5); WBC 10.14 10*3/uL (4.50-10.00)
[2024-07-26 19:17] LABS: Partial Thromboplastin Time 22.7 sec (22.0-30.0); Prothrombin Time 10.9 sec (10.0-12.5)
[2024-07-26 19:21] LABS: ALT 50 U/L (4-49); AST 48 U/L (17-59); African American GFR (CKD) >90 (>60 ml/min/1.73 sqM); Alkaline Phosphatase 81 U/L (38-126); Anion Gap 9 mmol/L; Blood Urea Nitrogen 27 mg/dL (9-20); Calcium 9.3 mg/dL (8.4-10.2); Carbon Dioxide 28 mmol/L (22-30); Chloride 103 mmol/L (98-107); Glucose 148 mg/dL (74-99); Magnesium 1.7 mg/dL (1.6-2.3); Non-African American GFR(CKD) 86 (>60 ml/min/1.73 sqM); Phosphorus 3.9 mg/dL (2.5-4.5); Potassium 3.8 mmol/L (3.5-5.1); Sodium 140 mmol/L (137-145); Total Bilirubin 0.4 mg/dL (0.2-1.3); Total Protein 7.6 g/dL (6.3-8.2)
[2024-07-26 19:29] LABS: NT-Pro-B-Type Natriuretic Pept 125 pg/mL
--- NOTE | 2024-07-26 20:05 | CT ---
EXAMINATION TYPE: CT brain wo con DATE OF EXAM: 07/26/2024 7:56 PM COMPARISON: None. CLINICAL INDICATION: Male, 74 years old with history of dizziness, dizziness TECHNIQUE: CT of the brain is performed utilizing 3 mm thick sections through the posterior fossa and 3 mm thick sections through the remaining calvarium. Study is performed within 24 hours of arrival to the hospital. Contrast used: mL of , (none if empty) CT DLP: 1960.5 mGycm, Automated exposure control for dose reduction was used. FINDINGS: No abnormal hyperdensity is present to suggest an acute intracranial hemorrhage. No mass lesion is evident. No acute infarcts are evident. Mild periventricular white matter hypodensity is present, likely on th e basis of chronic white matter ischemic changes. Ventricles and sulci are somewhat prominent for the patient age. Paranasal sinuses and mastoid air cells within the [id number] are clear. IMPRESSION: 1. No acute intracranial process. Follow up MRI can be performed as clinically indicated. 2. Atrophy with chronic mild periventricular white matter ischemic changes. [facility], , 07/26/2024 8:03 PM
--- NOTE | 2024-07-26 20:10 | CT ---
EXAMINATION TYPE: CT angio head neck DATE OF EXAM: 07/26/2024 8:01 PM COMPARISON: None. CLINICAL INDICATION: Male, 74 years old with history of dizziness, dizziness TECHNIQUE: CTA scan is performed with axial images are obtained, coronal and sagittal reformatted jose daniel ges are reviewed. MIP images created on a separate workstation and submitted for review. 3-D reconstr ucted images could not be performed. Source images are reviewed. NASCET criteria was used in interpr etation of this exam? Contrast used:65 mL of Isovue 370 without and with IV Contrast, (none if empty) Oral contrast used: (none if empty) CT DLP: 1960.5 mGycm, Automated exposure control for dose reduction was used. FINDINGS: Carotid/Vascular Structures: There is a 3 vessel arch. Common carotid arteries bifurcate into internal and external carotid arteries without significant iglesia w limiting stenosis. Vertebral arteries are codominant. Internal carotid arteries and vertebral arteries are patent to the skull base. Cervical of [place]: Vertebral basilar system appears normal. Posterior cerebral vasculature is unrema rkable. Internal carotid arteries bifurcate normally into A1 and M1 segments. A2 segments are normal. The anterior communicating artery is not clearly identified. The right posterior communicating artery is patent. The left posterior communicating artery is absent. IMPRESSION: 1. No flow-limiting stenosis bilateral carotid bifurcations. 2. Normal [place] of [place]. 3. Examination is limited due to body habitus and contrast bolus. [facility], , 07/26/2024 8:08 PM
[2024-07-26 21:09] VITALS: BP 166/76; PULSE 91; RESP 18; TEMP 98
[2024-07-26] MEDS: MECLIZINE 12.5 MG TAB PO STA (21:09)
== END 2024-07-26 21:19 | disposition home or self-care (01) ==
LOC: EC 18:15
DX: H81.10 Benign paroxysmal vertigo, unspecified ear (principal); Z88.5 Allergy status to narcotic agent
CPT/HCPCS: 36415; 93005; 83880; 80053; 83605; 83735; 84100; 84484; 85025; 85610; 85730; 70496; 70450; 70498; 99285; 96374; 96375; 96361; J1200; J2405; Q9967